=== PATIENT | female | born 1980 | race Caucasian/White ===

== ENCOUNTER → 2017-09-27 | Outpatient (CLI) | payer OTHER ==
[2017-09-27 15:38] LABS: THYROID STIM HORMONE (TSH) 1.047 uIU/mL (0.358-3.74)
[2017-09-28 06:15] LABS: FSH 4.2 mIU/mL (.)
== END | disposition home or self-care (01) ==
LOC: US 13:38
DX: N91.2 Amenorrhea, unspecified (principal)
CPT/HCPCS: 36415; 76830; 76856; 83001; 84443; 84702

== ENCOUNTER 2018-10-05 18:46 | Emergency (ER) | payer OTHER ==
[~2018-10-05] VITALS: Ht 154.9 cm; Wt 63.5 kg
[~2018-10-05 18:46] MED LIST: ASPI1TAB59 PO; CITA20TA6 PO; OXYC1TAB22 PO; RISP2TAB33 PO; TEMA30CA6 PO; TIZA4CAP3 PO; TIZA4TAB8 PO; TRAZ-118 PO; TRAZ-86 PO; [UNRECOGNIZED DRUG - CODE] PO
--- NOTE | 2018-10-05 19:03 | PHYS DOC ---
Past Medical History Past Medical History: Bipolar, Depression, Migraines, Other Additional Past Medical Histor: chronic back pain Past Surgical History: No Surgical History Smoking: Cigarettes, 1 Pack Per Day Alcohol Use: None Drug Use: None Adult General HPI HPI Patient is a 38 year old female who presents with suicidal gesture. Patient had been fighting with her boyfriend since this morning, shortly before calling 911 took a handful of risperidone that she spit out. The medication is hers. She does have a history of mental health issues. Currently denies any suicidal or homicidal ideation. Denies any other coingestants. Nothing makes symptoms better or worse. [] Review of Systems Review of Systems Constitutional: Denies fever or chills [] Eyes: Denies change in visual acuity, redness, or eye pain [] HENT: Denies nasal congestion or sore throat [] Respiratory: Denies cough or shortness of breath [] Cardiovascular: No additional information not addressed in HPI [] GI: Denies abdominal pain, nausea, vomiting, bloody stools or diarrhea [] : Denies dysuria or hematuria [] Musculoskeletal: Denies back pain or joint pain [] Integument: Denies rash or skin lesions [] Neurologic: Denies headache, focal weakness or sensory changes [] Endocrine: Denies polyuria or polydipsia [] All other systems were reviewed and found to be within normal limits, except as documented in this note. Allergies Allergies Allergies Coded Allergies Type Severity Reaction Last Updated Verified duloxetine Allergy Severe hallucinations 02/09/14 Yes latex Allergy Unknown swelling 02/09/14 No sertraline Allergy Unknown hallucinations 02/09/14 Yes Uncoded Allergies Type Severity Reaction Last Updated Verified onions Allergy Severe throat swells 02/09/14 Physical Exam Physical Exam Constitutional: Well developed, well nourished, no acute distress, non-toxic appearance. [] HENT: Normocephalic, atraumatic, bilateral external ears normal, oropharynx moist, no oral exudates, nose normal. [] Eyes: PERRLA, EOMI, conjunctiva normal, no discharge. [] Neck: Normal range of motion, no tenderness, supple, no stridor. [] Cardiovascular:Heart rate regular rhythm, no murmur [] Lungs & Thorax: Bilateral breath sounds clear to auscultation [] Abdomen: Bowel sounds normal, soft, no tenderness, no masses, no pulsatile masses. [] Skin: Warm, dry, no erythema, no rash. [] Back: No tenderness, no CVA tenderness. [] Extremities: No tenderness, no cyanosis, no clubbing, ROM intact, no edema. [] Neurologic: Alert and oriented X 3, normal motor function, normal sensory function, no focal deficits noted. [] Psychologic: Affect normal, judgement normal, mood normal. [] Current Patient Data Vital Signs Vital Signs Date Time Temp Pulse Resp B/P (MAP) Pulse Ox O2 Delivery O2 Flow Rate FiO2 10/05/18 20:29 82 18 116/72 (87) 98 Room Air 10/05/18 18:48 98.4 98.4 Lab Values Laboratory Tests Test 10/05/18 19:10 10/05/18 19:12 10/05/18 19:48 Urine Collection Type Unknown Urine Color Yellow Urine Clarity Clear Urine pH 6.0 Urine Specific [place] 1.025 Urine Protein Negative mg/dL (NEG-TRACE) Urine Glucose (UA) Negative mg/dL (NEG) Urine Ketones (Stick) Negative mg/dL (NEG) Urine Blood Negative (NEG) Urine Nitrite Negative (NEG) Urine Bilirubin Negative (NEG) Urine Urobilinogen Dipstick 0.2 mg/dL (0.2 mg/dL) Urine Leukocyte Esterase Negative (NEG) Urine RBC Occ /HPF (0-2) Urine WBC Occ /HPF (0-4) Urine Squamous Epithelial Cells Mod /LPF Urine Bacteria 0 /HPF (0-FEW) Urine Mucus Mod /LPF Urine Opiates Screen Neg (NEG) Urine Methadone Screen Neg (NEG) Urine Barbiturates Neg (NEG) Urine Phencyclidine Screen Neg (NEG) Urine Amphetamine/Methamphetamine Neg (NEG) Urine Benzodiazepines Screen Pos (NEG) Urine Cocaine Screen Neg (NEG) Urine Cannabinoids Screen Pos (NEG) Urine Ethyl Alcohol Neg (NEG) POC Urine HCG, Qualitative Hcg positive (Negative) White Blood Count 9.6 x10^3/uL (4.0-11.0) Red Blood Count 3.54 x10^6/uL (3.50-5.40) Hemoglobin 11.4 g/dL (12.0-15.5) L Hematocrit 34.5 % (36.0-47.0) L Mean Corpuscular Volume 98 fL (79-100) Mean Corpuscular Hemoglobin 32 pg (25-35) Mean Corpuscular Hemoglobin Concent 33 g/dL (31-37) Red Cell Distribution Width 13.6 % (11.5-14.5) Platelet Count 294 x10^3/uL (140-400) Neutrophils (%) (Auto) 72 % (31-73) Lymphocytes (%) (Auto) 20 % (24-48) L Monocytes (%) (Auto) 6 % (0-9) Eosinophils (%) (Auto) 2 % (0-3) Basophils (%) (Auto) 1 % (0-3) Neutrophils # (Auto) 6.9 x10^3uL (1.8-7.7) Lymphocytes # (Auto) 1.9 x10^3/uL (1.0-4.8) Monocytes # (Auto) 0.6 x10^3/uL (0.0-1.1) Eosinophils # (Auto) 0.2 x10^3/uL (0.0-0.7) Basophils # (Auto) 0.1 x10^3/uL (0.0-0.2) Prothrombin Time 12.3 SEC (11.7-14.0) Prothrombin Time INR 0.9 (0.8-1.1) Sodium Level 139 mmol/L (136-145) Potassium Level 3.8 mmol/L (3.5-5.1) Chloride Level 103 mmol/L (98-107) Carbon Dioxide Level 23 mmol/L (21-32) Anion Gap 13 (6-14) Blood Urea Nitrogen 12 mg/dL (7-20) Creatinine 0.6 mg/dL (0.6-1.0) Estimated GFR (Cockcroft-Gault) 110.7 BUN/Creatinine Ratio 20 (6-20) Glucose Level 85 mg/dL (70-99) Calcium Level 8.8 mg/dL (8.5-10.1) Magnesium Level 1.8 mg/dL (1.8-2.4) Total Bilirubin 0.1 mg/dL (0.2-1.0) L Aspartate Amino Transferase (AST) 25 U/L (15-37) Alanine Aminotransferase (ALT) 37 U/L (14-59) Alkaline Phosphatase 103 U/L (46-116) Total Protein 6.9 g/dL (6.4-8.2) Albumin 3.4 g/dL (3.4-5.0) Albumin/Globulin Ratio 1.0 (1.0-1.7) Salicylates Level 6.5 mg/dL (2.8-20.0) Salicylate Last Dose Date Unknown Salicylate Last Dose Time Unknown Acetaminophen Level < 2 mcg/ml (10-30) L Acetaminophen Last Dose Date Unknown Acetaminophen Last Dose Time Unknown Ethyl Alcohol Level < 10 mg/dL (0-10) Laboratory Tests 10/05/18 19:48 Laboratory Tests 10/05/18 19:48 EKG EKG EKG shows a sinus rhythm at 76 bpm, rightward axis at 110�, QTC at 458 ms, no ST elevation, no terminal 40 ms QRS prolongation in lead aVR. Interpreted by me at 1940 Repeat EKG just to ensure that there was no prolonged duration of the QTC was performed at 210, interpreted by me at 2106 shows no acute changes when compared with the previous EKG, QTC of 459 ms[] Radiology/Procedures Radiology/Procedures [] Course & Med Decision Making Course & Med Decision Making Pertinent Labs and Imaging studies reviewed. (See chart for details) Medical decision making: Patient has a prescription bottle and her name for risperidone 2 mg tablets with 30 dispensed on September 29, 2018. In counting the pills there are actually 39 of the pills in the bottle where 5-6 should be missing due to appropriate use. Poison control contacted. Patient was evaluated by the PAT team who feels that she is safe after having contracted for safety and has a safe place to go. There is no continued suicidal ideation There is no evidence of any significant toxidrome. There is no prolonged QTC on her EKGs. There is no evidence of a urinary tract infection nor ketosis given her . No evidence of a tubal given the lack abdominal pain and believe this can be appropriately followed as an outpatient. ED course: Patient arrived, was placed in bed, tolerated exam well. Patient was evaluated by the PAT team. Patient was discharged in improved condition.[] Dragon Disclaimer Dragon Disclaimer This electronic medical record was generated, in whole or in part, using a voice recognition dictation system. Departure Departure Impression: Primary Impression: Adjustment disorder Additional Impression: Disposition: 01 HOME, SELF-CARE Condition: IMPROVED Referrals: DRISS VASQUES APRN (PCP) Follow-up in 2 days Patient Instructions: ABCs of , Adjustment Disorder, Suicidal Feelings , How to Help Yourself Additional Instructions: Follow-up with your primary care physician in 2 days to allow for adjustment of medication since you are . Call tomorrow to set up the appointment. Take your medication only as prescribed. Return to the ER if you're thinking about hurting yourself, anyone else, or any other concerns. Scripts Vits W-Ca,Fe,Fa(<1MG) ( VITAMINS) 1 Each Tablet 1 TAB PO DAILY, #30 TAB 0 Refills Prov: DENIZ MARRERO DO 10/05/18 Problem Qualifiers Primary Impression: Adjustment disorder Adjustment disorder type: with conduct disturbance Qualified Codes: F43.24 - Adjustment disorder with disturbance of conduct Additional Impression: Weeks of gestation: unspecified Qualified Codes: Z34.90 - Encounter for supervision of normal , unspecified, unspecified trimester DENIZ MARRERO DO Oct 05, 2018 19:03
[2018-10-05 19:36] LABS: BARBITURATES NEG (NEG); BENZODIAZEPINES POS (NEG); CANNABINOIDS POS (NEG); COCAINE NEG (NEG); METHADONE NEG (NEG); OPIATES NEG (NEG); PHENCYCLIDINE NEG (NEG)
[2018-10-05 19:39] LABS: AMPHETAMINE/METHAMPHETAMINE NEG (NEG)
[2018-10-05 20:01] LABS: BASO # 0.1 x10^3/uL (0.0-0.2); BASO % 1 % (0-3); EOS # 0.2 x10^3/uL (0.0-0.7); EOS % 2 % (0-3); HEMATOCRIT 34.5 % (36.0-47.0); HEMOGLOBIN 11.4 g/dL (12.0-15.5); LYMPH # 1.9 x10^3/uL (1.0-4.8); LYMPH % 20 % (24-48); MEAN CORPUSCULAR HEMOGLOBIN 32 pg (25-35); MEAN CORPUSCULAR HGB CONC 33 g/dL (31-37); MEAN CORPUSCULAR VOLUME 98 fL (79-100); MONO # 0.6 x10^3/uL (0.0-1.1); MONO % 6 % (0-9); NEUT # 6.9 x10^3uL (1.8-7.7); NEUT % 72 % (31-73); PLATELET COUNT 294 x10^3/uL (140-400); RED BLOOD COUNT 3.54 x10^6/uL (3.50-5.40); RED CELL DISTRIBUTION WIDTH 13.6 % (11.5-14.5); WHITE BLOOD COUNT 9.6 x10^3/uL (4.0-11.0)
[2018-10-05 20:09] LABS: CALCIUM 8.8 mg/dL (8.5-10.1); CREATININE 0.6 mg/dL (0.6-1.0); GFR 110.7; POTASSIUM 3.8 mmol/L (3.5-5.1)
[2018-10-05 20:14] LABS: ALBUMIN 3.4 g/dL (3.4-5.0); MAGNESIUM 1.8 mg/dL (1.8-2.4); TOTAL BILIRUBIN 0.1 mg/dL (0.2-1.0); TOTAL PROTEIN 6.9 g/dL (6.4-8.2)
[2018-10-05 20:15] LABS: ACETAMIN < 2 mcg/ml (10-30); SALIC 6.5 mg/dL (2.8-20.0)
[2018-10-05 20:16] LABS: ETHANOL < 10 mg/dL (0-10)
[2018-10-05 20:29] VITALS: BP 116/72
[2018-10-05 20:32] LABS: PROTHROMBIN TIME PATIENT 12.3 SEC (11.7-14.0)
[2018-10-05 20:48] LABS: BILIRUBIN,URINE NEGATIVE (NEG); CLARITY,URINE CLEAR; COLOR,URINE YELLOW; NITRITE,URINE NEGATIVE (NEG); PROTEIN,URINE NEGATIVE (NEG-TRACE); UROBILINOGEN,URINE 0.2 mg/dL (0.2 mg/dL)
[2018-10-05 20:53] LABS: BACTERIA,URINE 0 /HPF (0-FEW); RBC,URINE OCC /HPF (0-2); SQUAMOUS EPITHELIAL CELL,UR MOD /LPF; WBC,URINE OCC /HPF (0-4)
[2018-10-05] MEDS ORDERED: PREN1TAB58 PO (21:02)
--- NOTE | 2018-10-06 07:01 | EKG ---
[facility] [address] [place] [address] Test Date: 2018-10-05 Test Time: 19:34:21 Pat Name: JOSSUE RUBIO Department: Room: Gender: F Rn Dermatology: : 1980 Requested By: DENIZ MARRERO Order Number: [id number] Reading MD: Calderon Frey MD Measurements Intervals [place] Rate: 76 P: 48 CO: 152 QRS: 110 QRSD: 82 T: 31 QT: 408 QTc: 458 Interpretive Statements SINUS RHYTHM Electronically Signed On 10-09-2018 10:28:45 SOFTWARE PROGRAM MANAGER by Calderon Frey MD
--- NOTE | 2018-10-06 07:08 | EKG ---
[facility] [address] [place] [address] Test Date: 2018-10-05 Test Time: 21:02:24 Pat Name: JOSSUE RUBIO Department: Room: Gender: F [employer]: : 1980 Requested By: DENIZ MARRERO Order Number: [id number] Reading MD: Calderon Frey MD Measurements Intervals [place] Rate: 82 P: 48 MI: 156 QRS: 111 QRSD: 82 T: 29 QT: 390 QTc: 459 Interpretive Statements SINUS RHYTHM Electronically Signed On 10-09-2018 10:29:40 LAB ANIMAL TECHNOLOGIST by Calderon Frey MD
== END 2018-10-05 21:16 | disposition home or self-care (01) ==
LOC: ER 18:46
DX: Z33.1 Pregnant state, incidental (principal); F43.24 Adjustment disorder with disturbance of conduct; R45.851 Suicidal ideations; F31.9 Bipolar disorder, unspecified; G43.909 Migraine, unspecified, not intractable, without status migrainosus; G89.29 Other chronic pain; F17.210 Nicotine dependence, cigarettes, uncomplicated; Z91.040 Latex allergy status; Z91.018 Allergy to other foods; Z88.8 Allergy status to other drugs, medicaments and biological substances
CPT/HCPCS: 36415; 80053; 80307; 80329; 81001; 81025; 83735; 85025; 85610; 93005; 99284; G0480; G6039

== ENCOUNTER → 2019-02-09 | Outpatient (CLI) | payer OTHER ==
[~2019-02-09] MED LIST changes: +PREN1TAB58 PO
--- NOTE | 2019-02-09 11:00 | KCIC ---
Right lower extremity venous doppler ultrasound History: Right lower extremity edema Comparison: None Findings: Multiple grayscale, color, and duplex spectral analysis sonographic images were acquired of the right lower extremity veins to evaluate for the presence of DVT. There is normal phasicity. Normal compression, color-flow, and augmentation is demonstrated from the right common femoral to the popliteal veins. There is normal color flow of the proximal greater saphenous and profunda femoris veins. There is normal color flow of segments of the calf veins. Impression: 1. There is no evidence of deep venous thrombosis from the right common femoral to the popliteal veins. Electronically signed by: Danie Alexis MD (02/09/2019 10:57 AM) [facility]-[id number]
== END | disposition home or self-care (01) ==
LOC: KCIC US 09:59
PROVIDERS: ATTEND Nurse Practitioner Family
DX: R60.0 Localized edema (principal)
CPT/HCPCS: 93971

== ENCOUNTER 2020-09-08 13:02 | Emergency (ER) | payer OTHER ==
[~2020-09-08] VITALS: Ht 154.9 cm; Wt 72.7 kg
[~2020-09-08 13:02] MED LIST changes: +TRAZ-123 PO; -TRAZ-86 PO
--- NOTE | 2020-09-08 13:37 | PHYS DOC ---
Past Medical History Past Medical History: Anxiety, Arthritis, Bipolar, Depression, [place], Migraines, Other Additional Past Medical Histor: chronic back pain, muscle spasm,buldging discs, gastric ulcer Past Surgical History: No Surgical History Smoking Status: Current Every Day Smoker Alcohol Use: None Drug Use: None General Adult EDM: Chief Complaint: CHEST PAIN HPI: HPI: Patient is a 40 year old female who was brought here by EMS from work due to chest pain. Patient said that chest pain is aching in nature radiated to her neck and her arm. Patient also have trouble breathing. Patient has history of anxiety depression bipolar disorder. Patient woke up this morning at 3:00 to smoke, while she was standing to smoke she still having chest pain and numbness in her arm and her leg. EMS were called, they came and checked on her and she was okay so they did not take her to the hospital. Therefore this morning she went well, while she was at work she started having the chest pain again so EMS were called to take her here for evaluation. Review of Systems: Review of Systems: Constitutional: Denies fever or chills. [] Eyes: Denies change in visual acuity. [] HENT: Denies nasal congestion or sore throat. [] Respiratory: Denies cough , positive for shortness of breath. [] Cardiovascular: Positive for chest pain, no edema GI: Denies abdominal pain, nausea, vomiting, bloody stools or diarrhea. [] : Denies dysuria. [] Musculoskeletal: Denies back pain or joint pain. [] Integument: Denies rash. [] Neurologic: Denies headache, focal weakness or sensory changes. [] Endocrine: Denies polyuria or polydipsia. [] Lymphatic: Denies swollen glands. [] Psychiatric: Denies depression or anxiety. [] Heart Score: HEART Score for Chest Pain: HEART Score for Chest Pain Response (Comments) Value History Slighlty/Non-Suspicious 0 ECG Normal 0 Age < 45 0 Risk Factors No Risk Factors 0 Troponin < Normal Limit 0 Total 0 Risk Factors: Risk Factors: DM, Current or recent (<one month) smoker, HTN, HLP, family history of CAD, obesity. Risk Scores: Score 0 - 3: 2.5% MACE over next 6 weeks - Discharge Home Score 4 - 6: 20.3% MACE over next 6 weeks - Admit for Clinical Observation Score 7 - 10: 72.7% MACE over next 6 weeks - Early Invasive Strategies Allergies: Allergies: Allergies Coded Allergies Type Severity Reaction Last Updated Verified duloxetine Allergy Severe hallucinations 02/09/14 Yes latex Allergy Unknown swelling 02/09/14 No sertraline Allergy Unknown hallucinations 02/09/14 Yes Uncoded Allergies Type Severity Reaction Last Updated Verified onions Allergy Severe throat swells 02/09/14 Physical Exam: PE: Constitutional: Well developed, well nourished, no acute distress, non-toxic appearance. [] HENT: Normocephalic, atraumatic, bilateral external ears normal, oropharynx moist, no oral exudates, nose normal. [] Eyes: PERRLA, EOMI, conjunctiva normal, no discharge. [] Neck: Normal range of motion, no tenderness, supple, no stridor. [] Cardiovascular:Heart rate regular rhythm, no murmur [] Lungs & Thorax: Bilateral breath sounds clear to auscultation [] Abdomen: Bowel sounds normal, soft, no tenderness, no masses, no pulsatile masses. [] Skin: Warm, dry, no erythema, no rash. [] Back: No tenderness, no CVA tenderness. [] Extremities: No tenderness, no cyanosis, no clubbing, ROM intact, no edema. [] Neurologic: Alert and oriented X 3, normal motor function, normal sensory function, no focal deficits noted. [] Psychologic: Affect normal, judgement normal, mood normal. Appears very anxious Current Patient Data: Labs: Laboratory Tests Test 09/08/20 13:56 09/08/20 14:20 White Blood Count 8.0 x10^3/uL Red Blood Count 4.38 x10^6/uL Hemoglobin 14.0 g/dL Hematocrit 42.0 % Mean Corpuscular Volume 96 fL Mean Corpuscular Hemoglobin 32 pg Mean Corpuscular Hemoglobin Concent 34 g/dL Red Cell Distribution Width 13.4 % Platelet Count 332 x10^3/uL Neutrophils (%) (Auto) 68 % Lymphocytes (%) (Auto) 23 % Monocytes (%) (Auto) 6 % Eosinophils (%) (Auto) 2 % Basophils (%) (Auto) 1 % Neutrophils # (Auto) 5.5 x10^3/uL Lymphocytes # (Auto) 1.9 x10^3/uL Monocytes # (Auto) 0.4 x10^3/uL Eosinophils # (Auto) 0.2 x10^3/uL Basophils # (Auto) 0.0 x10^3/uL Sodium Level 139 mmol/L Potassium Level 4.0 mmol/L Chloride Level 105 mmol/L Carbon Dioxide Level 24 mmol/L Anion Gap 10 Blood Urea Nitrogen 15 mg/dL Creatinine 0.9 mg/dL Estimated GFR (Cockcroft-Gault) 68.7 BUN/Creatinine Ratio 17 Glucose Level 90 mg/dL Calcium Level 9.0 mg/dL Total Bilirubin 0.3 mg/dL Aspartate Amino Transf (AST/SGOT) 20 U/L Alanine Aminotransferase (ALT/SGPT) 31 U/L Alkaline Phosphatase 155 U/L Troponin I Quantitative < 0.017 ng/mL EI-Goj-N-Type Natriuretic Peptide 84 pg/mL Total Protein 7.8 g/dL Albumin 3.9 g/dL Albumin/Globulin Ratio 1.0 Urine Collection Type Unknown Urine Color Yellow Urine Clarity Clear Urine pH 6.0 Urine Specific [place] 1.025 Urine Protein Negative mg/dL Urine Glucose (UA) Negative mg/dL Urine Ketones (Stick) Negative mg/dL Urine Blood Negative Urine Nitrite Negative Urine Bilirubin Negative Urine Urobilinogen Dipstick 0.2 mg/dL Urine Leukocyte Esterase Negative Urine RBC 0 /HPF Urine WBC 1-4 /HPF Urine Squamous Epithelial Cells Many /LPF Urine Bacteria Few /HPF Urine Mucus Marked /LPF Urine Opiates Screen Neg Urine Methadone Screen Neg Urine Barbiturates Neg Urine Phencyclidine Screen Neg Urine Amphetamine/Methamphetamine Neg Urine Benzodiazepines Screen Neg Urine Cocaine Screen Neg Urine Cannabinoids Screen Pos Urine Ethyl Alcohol Neg Vital Signs: Vital Signs Date Time Temp Pulse Resp B/P (MAP) Pulse Ox O2 Delivery O2 Flow Rate FiO2 09/08/20 13:15 98.3 69 18 175/77 (109) 98 Room Air 98.3 EKG: EKG: EKG was done at 1307, heart rate 72 bpm, sinus rhythm, no ST segment elevation. Radiology/Procedures: Radiology/Procedures: [][facility] [address] [place] [address] IMAGING REPORT Signed PATIENT: JOSSUE RUBIO ACCOUNT: [id number] : 1980 LOCATION: ER AGE: 40 SEX: F EXAM STATUS: REG ER ORD. PHYSICIAN: ADOLFO LIANG DO REASON: CHEST PAIN,PT STATES HAVING LEFT SIDED CHEST PAIN. PROCEDURE: PORTABLE CHEST 1V XR CHEST 1V INDICATION: Reason: CHEST PAIN,PT STATES HAVING LEFT SIDED CHEST PAIN. / Spl. Instructions: / History: . COMPARISON STUDY: None. FINDINGS: Lungs: Normal lung volume. No pulmonary mass or consolidation. The tracheobronchial tree and hilar structures are normal. Pleura: No pleural effusion or pneumothorax. Heart and Mediastinum: The cardiomediastinal silhouette is normal. The great vessels of the thorax are normal. Bones and Soft Tissues: The bones and soft tissues are within normal limits. IMPRESSION: No acute cardiopulmonary process. Electronically signed by: Evie Mcelroy MD (09/08/2020 2:51 PM) [id number] DICTATED and SIGNED BY: EVIE MCELROY MD DATE: 09/08/20 [id number] 0 Course & Med Decision Making: Course & Med Decision Making Pertinent Labs and Imaging studies reviewed. (See chart for details) [] Dragon Disclaimer: Dragon Disclaimer: This electronic medical record was generated, in whole or in part, using a voice recognition dictation system. Departure Departure Impression: Primary Impression: Chest pain Additional Impression: Anxiety Disposition: 01 DC HOME SELF CARE/HOMELESS Condition: STABLE Referrals: DRISS VASQUES APRN (PCP) FOLLOW UP WITH YOUR DOCTOR NEEDED NEXT WEEK. Patient Instructions: Chest Pain (Nonspecific) Additional Instructions: Thank you for visiting our Emergency Department. We appreciate you trusting us with your care. If any additional problems come up don't hesitate to return to visit us. Please follow up with your primary care provider so they can plan additional care if needed and know about the problem that you had. If symptoms worsen come back to the Emergency Department. Any concerning symptoms that start such as chest pain, shortness of air, weakness or numbness on one side of the body, running high fevers or any other concerning symptoms return to the ER. ADOLFO LIANG DO Sep 08, 2020 13:36
[2020-09-08 14:08] LABS: BASO % 1 % (0-3); EOS # 0.2 x10^3/uL (0.0-0.7); EOS % 2 % (0-3); LYMPH # 1.9 x10^3/uL (1.0-4.8); LYMPH % 23 % (24-48); MEAN CORPUSCULAR HEMOGLOBIN 32 pg (25-35); MEAN CORPUSCULAR HGB CONC 34 g/dL (31-37); MEAN CORPUSCULAR VOLUME 96 fL (79-100); MONO # 0.4 x10^3/uL (0.0-1.1); MONO % 6 % (0-9); NEUT # 5.5 x10^3/uL (1.8-7.7); NEUT % 68 % (31-73); PLATELET COUNT 332 x10^3/uL (140-400); RED BLOOD COUNT 4.38 x10^6/uL (3.50-5.40); RED CELL DISTRIBUTION WIDTH 13.4 % (11.5-14.5)
[2020-09-08 14:30] LABS: CREATININE 0.9 mg/dL (0.6-1.0); GFR 68.7
[2020-09-08 14:37] LABS: ALBUMIN 3.9 g/dL (3.4-5.0); TOTAL BILIRUBIN 0.3 mg/dL (0.2-1.0); TOTAL PROTEIN 7.8 g/dL (6.4-8.2)
--- NOTE | 2020-09-08 14:54 | RAD ---
XR CHEST 1V INDICATION: Reason: CHEST PAIN,PT STATES HAVING LEFT SIDED CHEST PAIN. / Spl. Instructions: / Histor y: . COMPARISON STUDY: None. FINDINGS: Lungs: Normal lung volume. No pulmonary mass or consolidation. The tracheobronchial tree and hilar st ructures are normal. Pleura: No pleural effusion or pneumothorax. Heart and Mediastinum: The cardiomediastinal silhouette is normal. The great vessels of the thorax ar e normal. Bones and Soft Tissues: The bones and soft tissues are within normal limits. IMPRESSION: No acute cardiopulmonary process. Electronically signed by: Danie Mcelroy MD (09/08/2020 2:51 PM) [id number]
[2020-09-08 14:57] LABS: BARBITURATES NEG (NEG); BENZODIAZEPINES NEG (NEG); CANNABINOIDS POS (NEG); COCAINE NEG (NEG); METHADONE NEG (NEG); OPIATES NEG (NEG); PHENCYCLIDINE NEG (NEG)
[2020-09-08 14:58] LABS: BILIRUBIN,URINE NEGATIVE (NEG); CLARITY,URINE CLEAR; COLOR,URINE YELLOW; NITRITE,URINE NEGATIVE (NEG); PROTEIN,URINE NEGATIVE (NEG-TRACE); UROBILINOGEN,URINE 0.2 mg/dL (0.2 mg/dL)
[2020-09-08 15:00] LABS: AMPHETAMINE/METHAMPHETAMINE NEG (NEG)
[2020-09-08 15:08] LABS: BACTERIA,URINE FEW /HPF (0-FEW); RBC,URINE 0 /HPF (0-2)
[2020-09-08 15:31] VITALS: BP 126/69
--- NOTE | 2020-09-10 15:15 | NUR ---
IP: Attempted to contact pt concerning COVID results. Pt unavailable to come to phone. Left a message to return the call.
--- NOTE | 2020-09-12 08:59 | NUR ---
IP: Pt returned call, informed her of negative COVID test. Pt verbalized understanding.
== END 2020-09-08 15:40 | disposition home or self-care (01) ==
LOC: ER 13:02
DX: R07.89 Other chest pain (principal); Z20.822 Contact with and (suspected) exposure to COVID-19; R06.02 Shortness of breath; R20.0 Anesthesia of skin; F41.9 Anxiety disorder, unspecified; M19.90 Unspecified osteoarthritis, unspecified site; F32.9 Major depressive disorder, single episode, unspecified; I25.2 Old myocardial infarction; G43.909 Migraine, unspecified, not intractable, without status migrainosus; G89.29 Other chronic pain; F17.200 Nicotine dependence, unspecified, uncomplicated; Z91.018 Allergy to other foods; Z91.040 Latex allergy status; Z88.8 Allergy status to other drugs, medicaments and biological substances
CPT/HCPCS: 36415; 71045; 80053; 80307; 81001; 83880; 84484; 85025; 93005; 99285; C9803; U0003